=== PATIENT | male | born 1955 ===

== ENCOUNTER 2022-08-09 05:30 | Day surgery (SDC) | payer OTHER, MEDICARE ==
[2022-08-06 10:29] VITALS: BMI 25.1
[2022-08-09 11:42] VITALS: TEMP 97.8
[2022-08-09 12:21] VITALS: BP 115/73; PULSE 72; RESP 16
== END 2022-08-09 12:33 | disposition home or self-care (01) ==
LOC: JASU-ENDO 05:30
PROVIDERS: ATTEND Internal Medicine Gastroenterology
PROC: 0DBN8ZX Excision of Sigmoid Colon, Via Natural or Artificial Opening Endoscopic, Diagnostic (ICD-10-PCS; principal; 2022-08-09 11:00)
DX: Z12.11 Encounter for screening for malignant neoplasm of colon (principal); D12.5 Benign neoplasm of sigmoid colon; K64.8 Other hemorrhoids
CPT/HCPCS: 88305-TC